=== PATIENT | male | born 1930 | race Caucasian/White ===

== ENCOUNTER 2017-01-01 11:45 | Emergency (ER) | payer MEDICARE, OTHER ==
[~2017-01-01] VITALS: Ht 167.6 cm; Wt 90.3 kg
[~2017-01-01 11:45] MED LIST: ALLOPURINOL100 MG PO; AMIODARONE HCL200 MG PO; ASPIRIN EC81 MG PO; ATENOLOL25 MG PO; ATENOLOL50 MG PO; CALCIUM + VITA1 EACH PO; CALCIUM 500 +1 EAC1 PO; CENTRUM SILVER1 EAC2 PO; DIOVAN160 MG PO; FERROUS SULFAT325 MG PO; FLUZONE HI180 MCG/07 IM; FOSAMAX70 MG PO; FUROSEMIDE20 MG PO; K-TAB10 MEQ PO; LASIX20 MG PO; LEVAQUIN500 MG PO; LEVITRA10 MG PO; LEVOFLOXACIN250 MG PO; LEVOTHYROXINE88 MCG PO; LIDOCARE1 EACH TP; METOPROLOL TAR100 MG PO; METOPROLOL TART50 MG PO; NEURONTIN600 MG PO; NORCO 5-325 TA1 EACH PO; OCUVITE TABLET1 EAC1 PO; OMEPRAZOLE20 MG PO; OMNICEF250 MG/5 M PO; SF56 GM; SIMVASTATIN10 MG PO; VITAMIN C500 M1 PO; VITAMIN D1000 UNI1 PO; VITAMIN D1000 UNIT PO
[2017-01-01] MEDS ORDERED: TAMSULOSIN HCL0.4 MG PO (11:57)
[2017-01-01] MEDS ORDERED: METHYLPREDNISOLO4 M1 PO (12:49)
== END 2017-01-01 13:29 | disposition home or self-care (01) ==
LOC: ED 11:45
DX: M54.42 Lumbago with sciatica, left side (principal); I10 Essential (primary) hypertension; E03.9 Hypothyroidism, unspecified; K21.9 Gastro-esophageal reflux disease without esophagitis; M10.9 Gout, unspecified; Z87.891 Personal history of nicotine dependence; Z90.49 Acquired absence of other specified parts of digestive tract; Z88.0 Allergy status to penicillin; Z88.8 Allergy status to other drugs, medicaments and biological substances; Z79.899 Other long term (current) drug therapy
CPT/HCPCS: 81001; 96374; 99283; J1100

== ENCOUNTER 2017-08-17 20:31 | Emergency (ER) | payer MEDICARE, OTHER ==
[~2017-08-17] VITALS: Ht 154.9 cm; Wt 81.7 kg
--- OUTSIDE RECORDS SUMMARY | ~2017-08-17 | XMS | Clinical Summary ---
Demographics + + + | Address | [address] | | | [place] [address] | + + + | Home Phone | | + + + | Preferred Language | Unknown | + + + | Marital Status | | + + + | Denominational Affiliation | 1077 | + + + | Race | Unknown | + + + | Ethnic Group | Unknown | + + + Author + + + | Author | [facility] | + + + | Organization | [facility] | + + + | Address | Unknown | + + + | Phone | Unavailable | + + + Support + + + + + | Name | Relationship | Address | Phone | + + + + + | Mari Nieves | ECON | [address] | | | | | [place] | | | | | [address] | | + + + + + | [place] Fitzpatrick | ECON | Unknown | | + + + + + | Detailed,Message | ECON | Unknown | | + + + + + Care Team Providers + +------+ + | Care Land Leases And Rentals Manager Name | Role | Phone | + +------+ + | Dileep Morin MD | PP | | + +------+ + Allergies + + + + + + | Active Allergy | Reactions | Severity | Noted | Comments | | | | | Date | | + + + + + + | Noe Inhibitors | Swelling | Medium | 03/04/20 | Lips, tongue | | | | | 13 | | + + + + + + | Celecoxib | Other (See Comments) | Medium | 10/14/19 | Kidney failure | | | | | 15 | | + + + + + + | Povidone Iodine | Rash | Medium | 06/24/19 | | | | | | 14 | | + + + + + + | Penicillins | Rash | Medium | 03/04/20 | | | | | | 13 | | + + + + + + Current Medications + + +-------+---------+------+------+-------+ | Prescription | Sig. | Disp. | Refills | Star | End | Statu | | | | | | t | Date | s | | | | | | Date | | | + + +-------+---------+------+------+-------+ | Multiple | Take 1 tablet by | | | | | Activ | | Vitamins-Minerals | mouth daily. | | | | | e | | (MULTIVITAMIN WITH | | | | | | | | MINERALS) tablet | | | | | | | + + +-------+---------+------+------+-------+ | Cholecalciferol | Take 1,000 Units by | | | | | Activ | | (VITAMIN D) 1000 | mouth daily. | | | | | e | | UNITS capsule | | | | | | | + + +-------+---------+------+------+-------+ | Multiple | Take 1 capsule by | | | | | Activ | | Vitamins-Minerals | mouth daily. | | | | | e | | (OCUVITE-LUTEIN) | | | | | | | | CAPS | | | | | | | + + +-------+---------+------+------+-------+ | simvastatin | Take 10 mg by mouth | | | | | Activ | | (ZOCOR) 10 MG tablet | nightly. | | | | | e | + + +-------+---------+------+------+-------+ | allopurinol | Take 50 mg by mouth | | | | | Activ | | (ZYLOPRIM) 100 MG | daily. | | | | | e | | tablet | | | | | | | + + +-------+---------+------+------+-------+ | furosemide (LASIX) | Take 40 mg by mouth | | | | | Activ | | 20 MG tablet | every morning. | | | | | e | + + +-------+---------+------+------+-------+ | omeprazole | Take 40 mg by mouth | | | | | Activ | | (PRILOSEC) 20 MG | every morning before | | | | | e | | capsule | breakfast. | | | | | | + + +-------+---------+------+------+-------+ | valsartan (DIOVAN) | Take 160 mg by mouth | | | | | Activ | | 160 MG tablet | daily. | | | | | e | + + +-------+---------+------+------+-------+ | potassium chloride | Take 20 mEq by mouth | | | | | Activ | | (MICRO-K) 10 MEQ CR | daily. | | | | | e | | capsule | | | | | | | + + +-------+---------+------+------+-------+ | Calcium | Take 600 mg by mouth | | | | | Activ | | Carbonate-Vit D-Min | 2 (two) times | | | | | e | | (CALCIUM 600+D PLUS | daily. | | | | | | | MINERALS) 600-400 | | | | | | | | MG-UNIT TABS | | | | | | | + + +-------+---------+------+------+-------+ | aspirin 81 MG EC | Take 81 mg by mouth | | | | | Activ | | tablet | daily with | | | | | e | | | breakfast. | | | | | | + + +-------+---------+------+------+-------+ | levothyroxine | Take 88 mcg by mouth | | | | | Activ | | (SYNTHROID) 88 MCG | every morning | | | | | e | | tablet | before breakfast. | | | | | | + + +-------+---------+------+------+-------+ Active Problems + + + | Problem | Noted Date | + + + | CAD (coronary artery disease) | 04/14/2014 | + + + + + | Last Assessment & Plan: Low grade 3V-CAD, LVEF 60-65%. | | 85yo WM, here with his , doing relatively well. He is | | relatively sedentary, admits exertional shortness of breath and | | fatigue, but no orthopnea, PND, or increasing edema. Denies any | | chest pain. Unaware of any palpitations, or lightheadedness. | | Also, complains of increasing pain in his left hip. Since last | | seen, one year ago, no surgical procedures or hospitalizations. | | Today I took James for "the walk", a relatively slow pace, | | 1-1.5 miles per hour, we made it to the [facility] where he had to | | risk because of shortness of breath and pain in his left hip, | | made it back to the office. Tolerating medications. No changes | | in therapy. Labs with PCP.Hx CABG: noHx PCI/stent: noHx | | Pacemaker/ICD: noLast Cath, 08/16/2008: low-grade 3V-CAD, LVEF | | NML.Last Echo, 03/11/2013: LVEF 60-65%, mild bi-Atrial | | enlargement, mild AI, trace MR, trace TR.Last Stress Test, | | 03/10/2014: images benign, LVEF 62%ECG, 04/14/2014: sinus rhythm, | | frequent PVC's. | + + + + + | Frequent PVCs | 06/23/2013 | + + + + + | Last Assessment & Plan: Hx PVC's. Clinically benign.48hr | | , 07/28/2013: sinus rhythm, low frequency PAC's and PVC's, no | | significant pauses. | + + + + + | Valvular heart disease | 06/23/2013 | + + + + + | Last Assessment & Plan: Mild AI, mild MR, mild TR. | | Stable.Last Echo, 03/11/2013: LVEF 60-65%, mild bi-Atrial | | enlargement, mild AI, trace MR, trace TR. | + + + + + | Hypertension | 06/23/2013 | + + + + + | Last Assessment & Plan: Hypertension, controlled, continue | | current meds at current doses (Lasix, valsartan). | + + + + + | Hyperlipidemia | 06/23/2013 | + + + + + | Last Assessment & Plan: Hyperlipidemia, continue current meds | | at current dose (simvastatin). Recent labs, patient states | | results good. | + + + + + | Other chest pain | 03/04/2013 | + + + Family History + + +------+ + | Medical History | Relation | Name | Comments | + + +------+ + | Diabetes type II | Brother | | | + + +------+ + | Heart disease | Brother | | | + + +------+ + | Hypertension | Brother | | | + + +------+ + | Cancer | Father | | | + + +------+ + + +------+ + + | Relation | Name | Status | Comments | + +------+ + + | Brother | | | heart disease, DMII,HTN | | | | (Age | | | | | 78) | | + +------+ + + | Father | | | cancer | | | | (Age | | | | | 58) | | + +------+ + + | Mother | | | age related | | | | (Age | | | | | 90) | | + +------+ + + Social History + + + +--------+ + | Tobacco Use | Types | Packs/Day | Years | Date | | | | | Used | | + + + +--------+ + | Former Smoker | Cigarettes | | 22 | Quit: 04/28/1979 | + + + +--------+ + + +------+---+---+ | Smokeless Tobacco: | Chew | | | | Former User | | | | + +------+---+---+ + + | Comments: 6 months | + + + + +---------+ + | Alcohol Use | Drinks/We | oz/Week | Comments | | | ek | | | + + +---------+ + | Yes | 0 | 0.0 | 2 drinks per month | | | Standard | | | | | drinks or | | | | | | | | | | equivalen | | | | | t | | | + + +---------+ + + + + | Sex Assigned at | Date Recorded | | | | + + + | Not on file | | + + + Last Filed Vital Signs + + + + | Vital Sign | Reading | Time Taken | + + + + | Blood Pressure | 110/60 | 12/18/2015 3:58 PM PDT | + + + + | Pulse | 59 | 12/18/2015 3:58 PM PDT | + + + + | Temperature | - | - | + + + + | Respiratory Rate | 17 | 12/18/2015 3:58 PM PDT | + + + + | Oxygen Saturation | 95% | 12/18/2015 3:58 PM PDT | + + + + | Inhaled Oxygen | - | - | | Concentration | | | + + + + | Weight | 87.1 kg (192 lb 1.6 | 12/18/2015 3:58 PM PDT | | | oz) | | + + + + | Height | 167.6 cm (5' 6") | 12/18/2015 3:58 PM PDT | + + + + | Body Mass Index | 31.01 | 12/18/2015 3:58 PM PDT | + + + + Plan of Treatment + + + + + | Health Maintenance | Due Date | Last Done | Comments | + + + + + | Vaccine: | | | | | Dtap/Tdap/Td (1 - | 8 | | | | Tdap) | | | | + + + + + | Vaccine: | | | | | Pneumococcal 65+ | 4 | | | | High/Highest Risk (1 | | | | | of 2 - PCV13) | | | | + + + + + | Vaccine: Influenza | | | | | (Season Ended) | 8 | | | + + + + + Results Not on filefrom Last 3 Months Insurance + +--------+ +------+-------+ + | Payer | Benefi | Subscriber | Type | Phone | Address | | | t Plan | ID | | | | | | / | | | | | | | Group | | | | | + +--------+ +------+-------+ + | MEDICARE | MEDICA | xxxxxxxxxx | | | [address] | | | RE | | | | [place] [address] | | | IP-OP | | | | | + +--------+ +------+-------+ + | [employer]AN | ODS | xxxxxxxxx | | | | | | HEALTH | | | | | | | PLAN | | | | | + +--------+ +------+-------+ + + +--------+ +--------+ + + | Guarantor Name | Accoun | Relation to | Date | Phone | Billing Address | | | t Type | Patient | of | | | | | | | | | | + +--------+ +--------+ + + | JAMES NIEVES | Person | Self [birth year] Home: | [address] | | [address] | | 1931 | [phone] | [place] | | | [place] | | | [phone] | [address] | + +--------+ +--------+ + +
--- OUTSIDE RECORDS SUMMARY | ~2017-08-17 | XMS | Clinical Summary ---
Demographics + + + | Address | [address] | | | [place] [address] | + + + | Home Phone | | + + + | Preferred Language | Unknown | + + + | Marital Status | | + + + | Roman Catholic Affiliation | Unknown | + + + | Race | Unknown | + + + | Ethnic Group | Unknown | + + + Author + + + | Author | [facility] | | | and [facility] | + + + | Organization | [facility] | | | [facility] | + + + | Address | Unknown | + + + | Phone | Unavailable | + + + Support + + + + + | Name | Relationship | Address | Phone | + + + + + | Mari Nieves | ECON | [address] | | | | | [place], [place] | | | | | [address] | | + + + + + | [place] Barahona | ECON | [place] | | | | | [address] | | + + + + + Care Team Providers + +------+ + | Care Shell Trim Operator Name | Role | Phone | + +------+ + | Jason Morin | PP | | + +------+ + Allergies + + + + + + | Active Allergy | Reactions | Severity | Noted | Comments | | | | | Date | | + + + + + + | Noe Inhibitors | Swelling | Medium | 06/25/19 | Lips, tongue | | | | | 06 | | + + + + + + | Celecoxib | Other (See Comments) | Medium | 10/14/19 | Kidney failure | | | | | 15 | | + + + + + + | Lisinopril | Other (See Comments) | | 01/16/20 | ANGIOEDEMA | | | | | 17 | | + + + + + + | Penicillins | Rash | Medium | 06/25/19 | | | | | | 06 | | + + + + + [...] | | | + + +-------+---------+------+------+-------+ | allopurinol | Take 50 mg by mouth | | | | | Activ | | (ZYLOPRIM) 100 mg | Daily. | | | | | e | | tablet | | | | | | | + + +-------+---------+------+------+-------+ | Multiple | Take 1 tablet by | | | | | Activ | | Vitamins-Minerals | mouth Daily. | | | | | e | | (MULTIVITAMIN WITH | | | | | | | | MINERALS) tablet | | | | | | | + + +-------+---------+------+------+-------+ | | Take 1 tablet by | | 0 | 08/0 | | Activ | | HYDROcodone-acetamin | mouth every 6 hours | | | 8/20 | | e | | ophen (NORCO) 5-325 | as needed. | | | 17 | | | | mg per tablet | | | | | | | + + +-------+---------+------+------+-------+ | levothyroxine | Take 88 mcg by mouth | | | | | Activ | | (SYNTHROID) 88 mcg | Daily. | | | | | e | | tablet | | | | | | | + + +-------+---------+------+------+-------+ | Multiple | Take 1 capsule by | | | | | Activ | | Vitamins-Minerals | mouth Daily. | | | | | e | | (OCUVITE-LUTEIN) | | | | | | | | CAPS | | | | | | | + + +-------+---------+------+------+-------+ | omeprazole | Take 40 mg by mouth | | | | | Activ | | (PRILOSEC) 20 mg | Daily. | | | | | e | | capsule | | | | | | | + + +-------+---------+------+------+-------+ | potassium chloride | Take 20 mEq by mouth | | | | | Activ | | (MICRO-K) 10 mEq CR | Daily. | | | | | e | | capsule | | | | | | | + + +-------+---------+------+------+-------+ | simvastatin | Take 10 mg by mouth | | | | | Activ | | (ZOCOR) 10 mg tablet | nightly. | | | | | e | + + +-------+---------+------+------+-------+ | Calcium Carbonate | Take 1,200 mg by | | | | | Activ | | (CALCIUM 600 PO) | mouth Daily. | | | | | e | + + +-------+---------+------+------+-------+ | tamsulosin | Take 0.4 mg by mouth | | | | | Activ | | (FLOMAX) 0.4 mg CAPS | daily (after | | | | | e | | | breakfast). | | | | | | + + +-------+---------+------+------+-------+ | triamcinolone | Apply 1 Application | | | | | Activ | | (KENALOG) 0.1% cream | topically 3 times | | | | | e | | | daily. Then put on | | | | | | | | gloves for a few | | | | | | | | hours. | | | | | | + + +-------+---------+------+------+-------+ | sildenafil | Take 100 mg by mouth | | | | | Activ | | (VIAGRA) 100 MG | as needed for | | | | | e | | tablet | Erectile | | | | | | | | Dysfunction. | | | | | | + + +-------+---------+------+------+-------+ Active Problems + + + | Problem | Noted Date | + + + | Lumbar radiculopathy | 03/10/2017 | + + + | DDD (degenerative disc disease), lumbar | 03/10/2017 | + + + | Other idiopathic scoliosis, lumbar region | 03/10/2017 | + + + | Spinal stenosis of lumbar region with radiculopathy | 03/10/2017 | + + + | Neural foraminal stenosis of lumbar spine | 03/10/2017 | + + + | Facet arthritis of lumbar region (HCC) | 03/10/2017 | + + + Family History + + + + + | Medical History | Relation | Name | Comments | + + + + + | Diabetes | Brother | | | + + + + + | Heart surgery | Brother | | | + + + + + | High blood pressure | Brother | | | + + + + + | High blood pressure | Daughter | [place] | | | | | [place] | | + + + + + | No Known Problems | Daughter | | | + + + + + | Cancer | Father | | | + + + + + | No Known Problems | Maternal | | | | | Grandfath | | | | | er | | | + + + + + | No Known Problems | Maternal | | | | | Grandmoth | | | | | er | | | + + + + + | Cancer | Paternal | | | | | Grandfath | | | | | er | | | + + + + + | Cancer | Paternal | | | | | Grandmoth | | | | | er | | | + + + + + | Cancer | Sister | | | + + + + + | Cancer | Son | | | + + + + + | Kidney disease | Son | | Kidney Stones | + + + + + + + + + + | Relation | Name | Status | Comments | + + + + + | Brother | | | | | | | (Age | | | | | 85) | | + + + + + | Daughter | [place] | Alive | | | | [place] | | | + + + + + | Daughter | | Alive | | + + + + + | Father | | | Cancer | | | | (Age | | | | | 59) | | + + + + + | Maternal Grandfather | | Alive | | + + + + + | Maternal Grandmother | | Alive | | + + + + + | Mother | | | | | | | (Age | | | | | 90) | | + + + + + | Paternal Grandfather | | | | + + + + + | Paternal Grandmother | | | | + + + + + | Sister | | | Cancer | | | | (Age | | | | | 77) | | + + + + + | Son | | | Cancer | | | | (Age | | | | | 59) | | + + + + + | Son | | Alive | | + + + + + Social History + + + +--------+ + | Tobacco Use | Types | Packs/Day | Years | Date | | | | | Used | | + + + +--------+ + | Former Smoker | Cigarettes | 1 | 40 | 04/28/1948 - | | | | | | 04/28/1988 | + + + +--------+ + + +---+---+ + | Smokeless Tobacco: | | | Quit: | | Former User | | | 04/28/18 | | | | | 90 | + +---+---+ + + + +---------+ + | Alcohol Use | Drinks/We | oz/Week | Comments | | | ek | | | + + +---------+ + | Yes | | | Social | + + +---------+ + + + + | Sex Assigned at | Date Recorded | | | | + + + | Not on file | | + + + Last Filed Vital Signs + + + + | Vital Sign | Reading | Time Taken | + + + + | Blood Pressure | 135/96 | 03/18/2017 1653 PST | + + + + | Pulse | 84 | 03/10/2017 1004 PST | + + + + | Temperature | - | - | + + + + | Respiratory Rate | - | - | + + + + | Oxygen Saturation | - | - | + + + + | Inhaled Oxygen | - | - | | Concentration | | | + + + + | Weight | 84.4 kg (186 lb) | 03/10/20174 PST | + + + + | Height | 154.9 cm (5' 1") | 03/10/20171003 PST | + + + + | Body Mass Index | 35.14 | 03/10/20171003 PST | + + + + Plan of [...] filefrom Last 3 Months Insurance + +--------+ +--------+ + + | Payer | Benefi | Subscriber | Type | Phone | Address | | | t Plan | ID | | | | | | / | | | | | | | Group | | | | | + +--------+ +--------+ + + | MEDICARE | MEDICA | xxxxxxxxxx | Medica | [phone] | | | RE | | re | [phone] | | | | PART A | | | | | | | AND B | | | | | + +--------+ +--------+ + + | MODA | MODA | xxxxxxxxx | Indemn | [phone] [address] [address] | | | HEALTH | | [phone] | [phone] | [facility] [address] | | | MDCR | | | | | | | SUPPL | | | | | + +--------+ +--------+ + + + +--------+ +--------+ + + | Guarantor Name | Accoun | Relation to | Date | Phone | Billing Address | | | t Type | Patient | of | | | | | | | | | | + +--------+ +--------+ + + | JAMES NIEVES | Person | Self [birth year] | Home: | [address] | | [place] | al[address]Fam | | 1931 | [phone] | [place] [address] | | | [place] | | | [address] | | + +--------+ +--------+ + +
--- OUTSIDE RECORDS SUMMARY | ~2017-08-17 | XMS | Encounter Summary ---
Demographics + + + | Address | [address] | | | [place] [address] | + + + | Home Phone | | + + + | Preferred Language | Unknown | + + + | Marital Status | | + + + | Anabaptism Affiliation | NON | + + + | Race | White | + + + | Ethnic Group | Not or | + + + Author + + + | Author | [facility] | + + + | Organization | [facility] | + + + | Address | Unknown | + + + | Phone | Unavailable | + + + Support + + + + + | Name | Relationship | Address | Phone | + + + + + | HALEIGH NIEVES | ECON | [address] | | | | | [place] | | | | | [address] | | + + + + + Care Team Providers + +------+ + | Care Banbury Machine Operator Name | Role | Phone | + +------+ + | Jason Morin MD | PCP | | + +------+ + Reason for Visit + + + | Reason | Comments | + + + | Hearing loss | | + + + Benefits Check (Routine) + +--------+ + + + + | Status | Reason | Specialty | Diagnoses / | Referred By | Referred To | | | | | Procedures | Contact | Contact | + +--------+ + + + + | Authorized | | [facility] | | Non-[facility] | Ent | | | | | | Epic Dept | Audiology [facility] | | | | | | | [address] | | | | | | | [address] | | | | | | | [facility] | | | | | | | Mailcode: | | | | | | | [address] | | | | | | | Physician's | | | | | | | [address]ore | | | | | | | [place], [place] | | | | | | | [address] | | | | | | | Phone: | | | | | | | [phone] | | | | | | | Fax: | | | | | | | [phone] | + +--------+ + + + + Encounter Details +--------+ + + + + | Date | Type | Department | Care Team | Description | +--------+ + + + + | 06/23/ | Diagnostic | Otolaryngology | Steffanie Lino, | Hearing loss | | 2018 | Visit | Audiology Services | CCC-A [place], [place] | | | | | at [facility] [address] [facility] | [address] | | | | | [facility] | | | | | | Mailcode: [address] | | | | | | Paresh [address] | | | | | | [place], [place] | | | | | | [address] | | | | | | [phone] | | | +--------+ + + + + Social History + +-------+ +--------+------+ | Tobacco Use | Types | Packs/Day | Years | Date | | | | | Used | | + +-------+ +--------+------+ | Former Smoker | | | | | + +-------+ +--------+------+ + + | Comments: 30 years ago | + + + + +---------+ + | Alcohol Use | Drinks/We | oz/Week | Comments | | | ek | | | + + +---------+ + | Yes | 1 | 0.5 | rarely | | | Standard | | | | | drinks or | | | | | | | | | | equivalen | | | | | t | | | + + +---------+ + + + + | Sex Assigned at | Date Recorded | | | | + + + | Not on file | | + + + as of this encounter Progress Notes Steffanie Lino CCC-A - 06/23/2017 10:00 AM PSTFormatting of this note may be different f rom the original. [facility] Cochlear Implant Program Name: James Nieves Date of : 1930 Date of Visit: 06/23/2017 Adult Follow-up Cochlear Implant Assessment Summary Sheet James Nieves is a 86 y.o. male, seen by [facility] Audiology for routine follow-up cochlear i mplant programming of his bilateral AB HR90k/Gris CI Q70 cochlear implants. James was las t seen by [facility] Audiology on 01/20/17 for cochlear implant follow-up. James was accompanied to today's appointment by his . At the present appointment, James reported that he has been hearing well with his cochlear implants. He reported that he bumped one of the batteri es and it subsequently broke. He reported no other known device issues today. Soundfield testing was completed in order to verify benefit from James's cochlear implant s. Speech perception testing was completed at 60 dB SPL in the soundfield unless otherwise noted. The following responses were obtained: Thresholds: [phone] 2000 3000 4000 6000 SRT CI- R 25 30 35 45 60 75 75 - CI- R (left external device used on right side as bilateral settings are enabled) 25 25 40 50 55 55 60 - CI- L 30 25 40 55 60 65 60 - CI- R (clinic device) 25 25 25 25 30 35 30 25 CI- L (clinic device) 25 25 25 25 35 30 20 20 Speech Perception Tests (clinic device): List S/N Score % correct HINT- R 21/22 Quiet 21/106 20% HINT- L 23/24 Quiet 53/103 51% Test results reveal that James is able to detect soft sounds in the normal hearing to mil d hearing loss range using the CLINIC external devices with significantly elevated results o btained with patient's external devices. James's speech perception scores using the CLINIC external devices are essentially stable relative to most recent scores which were decreased on the right side and remained stable on the left (HINT R = 21-24%; L: 59%) and remain decr eased on the right and stable on the left relative to previous scores (R: HINT = 41%; L: HIN T = 52%) and relative to best post-op scores (R: HINT = 40%; L: HINT =60%). His left impla nt scores remain significantly improved relative to pre-op left hearing aid test scores (HIN T = 17%). It should be noted that previously Mr. Nieves had not been tested on speech perc eption tests since 12/16/2005 with the right implant at which time results state HINT scores to be 27%, 58%, and 65% but it is unclear the condition these test scores were obtained and therefore difficult to compare with more recent results. Troubleshooting indicated that his bilateral processors (SN: [id number]; [id number]) need replace d. All other external equipment was found to be functioning appropriately. Battery size 170 needs replaced as it was visualized to be broken. Request sent to [employer]INTER[employer] written as it may be out of warranty. The clinic processor was connected to the computer. Impedances were WNL/stable across the electrode array for both sides. No programming changes were made. The settings are saved as follows. Gris CI Q70 Right/Left: Map(s) Programmed: Program Location Map # Description P1 45/27 HiRes [place]-S, High CV, Processor andree P2410/23 HiRes [place]-S, High CV, Ultra Zoom, Processor micwith WindBlock, SoundRelax and Echoblock enabled James was encouraged to continue full-time use of the cochlear implants. James was coun seled regarding use of the programs for various listening environments. James should return for cochlear implant follow-up programming and testing in 3 months or sooner should concerns arise. It was a pleasure working with Mr. Nieves today. If there are any questions or concerns regarding today's evaluation, please do not hesitate to contact me at . Following today's visit, the RMAs were completed on the [employer] Portal. Completed LMN for these. Thank You! This completes the RMA Request. A replacement processor will be shipped out within 24 hours . If you have any questions please contact [employer] Service: or Email Us An email has also been sent to your address on file. (Please print for your records) RMA Number: [id number] Patient Name: James Nieves Uploaded File Name: Patient_Export James Nieves [id number] Processor to Return: Naida_Q70 Processor Serial No: [id number] Selected Visit History: 4529-29-26_56:44___(L) 27,28,0,0,0__(R) 45,46,0,0,0 Warranty Status: Unknown warranty status Bill To (if required): Patient Return Reason: Defective device Symptom (if required): Sound quality - Shipping Address: Patient: James Nieves | [facility] | [place] [address] Comments: Thank You! This completes the RMA Request. A replacement processor will be shipped out within 24 hours . If you have any questions please contact [employer] Service: or Email Us An email has also been sent to your address on file. (Please print for your records) RMA Number: [id number] Patient Name: James Nieves Uploaded File Name: Patient_Export James Nieves [id number] Processor to Return: Naida_Q70 Processor Serial No: [id number] Selected Visit History: 0988-87-15_40:44___(L) 27,28,0,0,0__(R) 45,46,0,0,0 Warranty Status: Out of warranty Bill To (if required): Patient Return Reason: Defective device Symptom (if required): Sound quality - Shipping Address: Patient: James Nieves | [address] | [place] [address] Comments: Andrew Benitez, [facility] Clinical Doctor of Audiology [facility] Cochlear Implant Program [address] [place], [place] [address], [address] [place] [phone] in this encounter Plan of Treatment +--------+ + + + + | Date | Type | Specialty | Care Team | Description | +--------+ + + + + | 09/24/ | Diagnostic | Chicken Catcher | Steffanie Lino, | | | 2017 | Visit | | [facility] [place], [place] | | | | | | [address] | | +--------+ + + + + as of this encounter Procedures + +--------+ + + + | Procedure Name | Priori | Date/Time | Associated Diagnosis | Comments | | | ty | | | | + +--------+ + + + | ME EVL AUD STTS RHB | Routin | 06/23/2017 | Sensorineural | | | | e | 12:05 PM | hearing loss, | | | | | PST | bilateral | | + +--------+ + + + | ME EVL AUD RHB STTS | Routin | 06/23/2017 | Sensorineural | | | | e | 12:05 PM | hearing loss, | | | | | PST | bilateral | | + +--------+ + + + | ME SPEECH | Routin | 06/23/2017 | Sensorineural | | | AUDIOMETRY, COMPLETE | e | 12:05 PM | hearing loss, | | | | | PST | bilateral | | + +--------+ + + + | ME PURE TONE | Routin | 06/23/2017 | Sensorineural | | | AUDIOMETRY, AIR | e | 12:05 PM | hearing loss, | | | | | PST | bilateral | | + +--------+ + + + in this encounter Visit Diagnoses + + | Diagnosis | + + | Sensorineural hearing loss, bilateral - Primary | + +"
--- OUTSIDE RECORDS SUMMARY | ~2017-08-17 | XMS | Clinical Summary ---
Demographics + + + | Address | [address] | | | [place] [address] | + + + | Home Phone | | + + + | Preferred Language | Unknown | + + + | Marital Status | | + + + | Episcopalian Affiliation | 1077 | + + + | Race | Unknown | + + + | Ethnic Group | Unknown | + + + Author + + + | Author | [facility] | + + + | Organization | [facility] [employer] [facility] | + + + | Address | Unknown | + + + | Phone | Unavailable | + + + Support + + + + + | Name | Relationship | Address | Phone | + + + + + | Mari Nieves | ECON | [address] | | | | | [place] | | | | | [address] | | + + + + + | Venice Fitzpatrick | ECON | Unknown | | + + + + + | Detailed,Message | ECON | Unknown | | + + + + + Care Team Providers + +------+ + | Care Rework Machine Operator Name | Role | Phone [...] per hour, we made it to the [facility] where he had to | | risk [...] RE | | | | [place] [address] | | | IP-OP | | | [...] | | | [place] | | | [address] | [address] | + +--------+ +--------+ + +
--- OUTSIDE RECORDS SUMMARY | ~2017-08-17 | XMS | Encounter Summary ---
Demographics + + + | Address | [address] | | | [place] [address] | + + + | Home Phone | | + + + | Preferred Language | Unknown | + + + | Marital Status | | + + + | Muslim Affiliation | NON | + + + | Race | White | + + + | Ethnic Group | Not or | + + + Author + + + | Author | [facility] | + + + | Organization | [facility] | + + + | Address | Unknown | + + + | Phone | Unavailable | + + + Support + + + + + | Name | Relationship | Address | Phone | + + + + + | HALEIGH NIEVES | ECON | [address] | | | | | [place] | | | | | [address] | | + + + + + Care Team Providers + +------+ + | Care Storage Facility Rental Clerk Name | Role | Phone | + +------+ + | Jason Morin MD | PCP | | + +------+ + Encounter Details +--------+ + + + + | Date | Type | Department | Care Team | Description | +--------+ + + + + | 06/30/ | Documentati | Otolaryngology | Param Lebron, | | | 2018 | on | Audiology Services | [facility] [address] | | | | | at [facility] [address] | [facility] | | | | | [facility] | [address] [place], [place] | | | | | Mailcode: [address] | [address] | | | | | Physician's Adore | | | | | | [place], [place] | | | | | | [address] | | | | | | [phone] | | | +--------+ + + + [...] + + + as of this encounter Plan of Treatment +--------+ + + + + | Date | Type | Specialty | Care Team | Description | +--------+ + + + + | 09/24/ | Diagnostic | Chlorination Operator | Steffanie Lino, | | | 2017 | Visit | | [facility] [place] | | | | | | [address] | | +--------+ + + + + as of this encounter Visit Diagnoses Not on filein this encounter"
--- OUTSIDE RECORDS SUMMARY | ~2017-08-17 | XMS | Clinical Summary ---
Demographics + + + | Address | [address] | | | [place] [address] | + + + | Home Phone | | + + + | Preferred Language | Unknown | + + + | Marital Status | | + + + | Jew Affiliation | Unknown | + + + | Race | Unknown | + + + | Ethnic Group | Unknown | + + + Author + + + | Author | [facility] | | | and Ste[place]ana | + + + | Organization | [facility] | | | and Stepanana | [...] [place], [place] | | | | | [address] | | + + + + + | Venice Barahona | ECON | [place] | | | | | [address] | | + + + + + Care Team Providers + +------+ + | Care Plastic Manager Name | Role | Phone | [...] | Indemn | [phone] [address] [address] | | | HEALTH | | ity | [phone] | [facility] [address] | | | MDCR | | | [...] | [phone] | [phone] | [place] [address] | | | silvio | | | [phone] | | + +--------+ +--------+ + +
--- OUTSIDE RECORDS SUMMARY | ~2017-08-17 | XMS | Encounter Summary ---
Demographics + + + | Address | [address] | | | [place] [address] | + + + | Home Phone | | + + + | Preferred Language | Unknown | + + + | Marital Status | | + + + | Latter Day Affiliation | NON | + + + | Race | White | + + + | Ethnic Group | Not or | + + + Author + + + | Author | [facility] | + + + | Organization | [facility] | + + + | Address | Unknown | + + + | Phone | Unavailable | + + + Support + + + + + | Name | Relationship | Address | Phone | + + + + + | HALEIGH NIEVES | ECON | [address] | | | | | [place] | | | | | [address] | | + + + + + Care Team Providers + +------+ + | Care Orthotic Finish Grinding Technician Name | Role | Phone | + [...] [facility] [address] | [facility] | | | | | [facility] | Rd [place], [place] | | | | | Mailcode: [address] | [address] | | | | | Physician's Adore | | | | | | [place], [place] | | | | | | [address] | | | | | | [phone] | | | +--------+ + + + [...] + + | 09/24/ | Diagnostic | Yarn Cleaner | Steffanie Lino, | | | 2017 | Visit | | [facility] [place] | | | | | | [address] | | +--------+ + + + + as of this encounter Visit Diagnoses Not on filein this encounter"
--- OUTSIDE RECORDS SUMMARY | ~2017-08-17 | XMS | Clinical Summary ---
Demographics + + + | Address | [address] | | | [place] [address] | + + + | Home Phone | | + + + | Preferred Language | Unknown | + + + | Marital Status | | + + + | Denominational Affiliation | NON | + + + | Race | White | + + + | Ethnic Group | Not or | + + + Author + + + | Author | [facility] | + + + | Organization | [facility] | + + + | Address | Unknown | + + + | Phone | Unavailable | + + + Support + + + + + | Name | Relationship | Address | Phone | + + + + + | HALEIGH NIEVES | ECON | [address] | | | | | [place] | | | | | [address] | | + + + + + Care Team Providers + +------+ + | Care Fish Hatchery Laborer Name | Role | Phone | + +------+ + | Jason Morin MD | PP | | + +------+ + Source Comments [facility] Allergies + + + + + + | Active Allergy | Reactions | Severity | Noted | Comments | | | | | Date | | + + + + + + | Noe Inhibitors | | High | 06/25/19 | | | | | | 06 | | + + + + + + | Penicillins | | High | 06/25/19 | | | | | | 06 | | + + + + + + Current Medications + + +-------+---------+------+------+-------+ | Prescription | Sig. | Disp. | Refills | Star | End | Statu | | | | | | t | Date | s | | | | | | Date | | | + + +-------+---------+------+------+-------+ | MULTIVITAMIN CAP | None Entered | | | | | Activ | | | | | | | | e | + + +-------+---------+------+------+-------+ | CALCIUM 500 MG TAB | Take (750mg) 1.5 | | | | | Activ | | | tablet by mouth once | | | | | e | | | per day | | | | | | + + +-------+---------+------+------+-------+ | OCUVITE TAB | None Entered | | | | | Activ | | | | | | | | e | + + +-------+---------+------+------+-------+ | Omeprazole 20 mg | Take 20 mg by mouth | | | | | Activ | | Oral Tablet, Delayed | once daily. | | | | | e | | Release (E.C.) | | | | | | | + + +-------+---------+------+------+-------+ | simvastatin 10 mg | Take 10 mg by mouth | | | | | Activ | | Oral Tablet | once daily in the | | | | | e | | | evening. | | | | | | + + +-------+---------+------+------+-------+ | valsartan 160 mg | Take 160 mg by mouth | | | | | Activ | | Oral Tablet | once daily. | | | | | e | + + +-------+---------+------+------+-------+ | cholecalciferol, | Take 1,000 Units by | | | | | Activ | | Vitamin D3, (VITAMIN | mouth every seven | | | | | e | | D) 1,000 unit Oral | days. | | | | | | | Tablet | | | | | | | + + +-------+---------+------+------+-------+ | allopurinol 100 mg | Take 100 mg by mouth | | | | | Activ | | Oral Tablet | once daily. 04/29 tab | | | | | e | | | qd | | | | | | + + +-------+---------+------+------+-------+ | aspirin chewable | Take 81 mg by mouth | | | | | Activ | | (BABY ASPIRIN) 81 mg | once daily. | | | | | e | | Oral Tablet, | | | | | | | | Chewable | | | | | | | + + +-------+---------+------+------+-------+ | furosemide 20 mg | Take 20 mg by mouth | | | | | Activ | | oral tablet | once daily. | | | | | e | + + +-------+---------+------+------+-------+ | LEVOTHYROXINE 88 | | | | 05/2 | | Activ | | mcg oral tablet | | | | 01/15 | | e | | | | | | 14 | | | + + +-------+---------+------+------+-------+ | potassium chloride | Take 10 mEq by mouth | | | | | Activ | | 10 % oral liquid | once daily. | | | | | e | + + +-------+---------+------+------+-------+ Active Problems + + + | Problem | Noted Date | + + + | Sensorineural hearing loss | 02/04/2014 | + + + Encounters +--------+ + + + + | Date | Type | Specialty | Care Team | Description | +--------+ + + + + | 06/30/ | Documentati | | Param Lebron, | | | 2018 | on | | [facility] | | +--------+ + + + + | 06/23/ | Diagnostic | | Steffanie Lino, | Hearing loss | | 2017 | Visit | | [facility] | | +--------+ + + + + from Last 3 Months Social History + +-------+ +--------+------+ | Tobacco [...] + + + | Blood Pressure | 172/86 | 02/07/2014 11:43 AM PDT | + + + + | Pulse | 84 | 02/07/2014 11:43 AM PDT | + + + + | Temperature | 36.4 C (97.5 F) | 02/07/2014 11:43 AM PDT | + + + + | Respiratory Rate | 15 | 02/07/2014 11:43 AM PDT | + + + + | Oxygen Saturation | 93% | 02/07/2014 11:43 AM PDT | + + + + | Inhaled Oxygen | - | - | | Concentration | | | + + + + | Weight | 91.2 kg (201 lb) | 02/04/2014 9:10 AM PDT | + + + + | Height | 167.6 cm (5' 6") | 02/04/2014 9:10 AM PDT | + + + + | Body Mass Index | 32.44 | 02/04/2014 9:10 AM PDT | + + + + Plan of Treatment +--------+ + + + + | Date | Type | Specialty | Care Team | Description | +--------+ + + + + | 09/24/ | Diagnostic | | Steffanie Lino, | | | 2017 | Visit | | [facility] [address] | | | | | | [address] | | | | | | [place], [place] | | | | | | [address] | | +--------+ + + + + + + + + + | Health Maintenance | Due Date | Last Done | Comments | + + + + + | INFLUENZA VACCINE | | | | | (FLU SHOT) | 8 | | | + + + + + Implants + +------+--------+ +--------+--------+--------+ | Implanted | Type | Area | Manufacture | Device | Expira | Model | | | | | r | | tion | / | | | | | | Identi | Date | Serial | | | | | | fier | | / Lot | + +------+--------+ +--------+--------+--------+ | Implant Mesh Surgipro 3 X 5 | | Left: | COVIDIEN | | 07/26/ | [id number] | | Open Weave - | | Ear | TYCO US | | 2019 | / | | [id number]: Qty: 1 on | | | SURGICAL | | | [id number] | | 02/07/2014 by Obinna Roth | | | | | | [id number] | | MD Ronald | | | | | | | + +------+--------+ +--------+--------+--------+ | Hires 90k Advantage Cochlear | | Left: | | | 09/25/ | CL-[id number] | | ImplantImplanted: Qty: 1 on | | Ear | | | 2016 | 0-04 | | 02/07/2014 by Obinna Roth | | | | | | /[id number] | | MD Ronald | | | | | | 3 / | + +------+--------+ +--------+--------+--------+ | Screw Low Profile 1.6mm X 3mm | | Left: | [facility] | | | 400.83 | | Ti Self-Drilling - | | Ear | | | | 3 / / | | [id number]: Qty: 1 on | | | | | | | | 02/07/2014 by Obinna Roth | | | | | | | | MD Ronald | | | | | | | + +------+--------+ +--------+--------+--------+ | Screw Low Profile 1.6mm X 3mm | | Left: | [employer] | | | 400.83 | | Ti Self-Drilling - | | Ear | | | | 3 / / | | [id number]: Qty: 1 on | | | | | | | | 02/07/2014 by Obinna Roth | | | | | | | | MD Ronald | | | | | | | + +------+--------+ +--------+--------+--------+ Procedures + +--------+ + + + | Procedure Name | Priori | Date/Time | Associated Diagnosis | Comments | | | ty | | | | + +--------+ + + + | TN EVL AUD STTS RHB | Routin | 06/23/2017 | Sensorineural | | | | e | 12:05 PM | hearing loss, | | | | | PST | bilateral | | + +--------+ + + + | TN EVL AUD RHB STTS | Routin | 06/23/2017 | Sensorineural | | | | e | 12:05 PM | hearing loss, | | | | | PST | bilateral | | + +--------+ + + + | TN SPEECH | Routin | 06/23/2017 | Sensorineural | | | AUDIOMETRY, COMPLETE | e | 12:05 PM | hearing loss, | | | | | PST | bilateral | | + +--------+ + + + | TN PURE TONE | Routin | 06/23/2017 | Sensorineural | | | AUDIOMETRY, AIR | e | 12:05 PM | hearing loss, | | | | | PST | bilateral | | + +--------+ + + + from Last 3 Months Results Not on filefrom Last 3 Months
--- OUTSIDE RECORDS SUMMARY | ~2017-08-17 | XMS | Clinical Summary ---
Demographics + + + | Address | [address] | | | [place] [address] | + + + | Home Phone | | + + + | Preferred Language | Unknown | + + + | Marital Status | | + + + | Scientologist Affiliation | NON | + + + [...] [place] | | | | | [address] | | + + + + + Care Team Providers + +------+ + | Care Host/Hostess Restaurant Name | Role | Phone | + +------+ + | Jason Morin MD | PP | | + +------+ + Source Comments [facility] and [facility] InPatient.[facility] Allergies + + + + + + [...] | | 2017 | Visit | | [facility] [address] | | | | | | [address] | | | | | | [place], [place] | | | | | | [address] | | +--------+ + + + + [...] | | 2019 | / | | [id number]: Qty: 1 on | | | SURGICAL [...] Roth | | | | | | /[id number] | | MD Ronald | | | | | | 3 / | + +------+--------+ +--------+--------+--------+ | Screw Low Profile 1.6mm X 3mm | | Left: | [facility] | | | 400.83 | | Ti Self-Drilling - | | Ear | | | | 3 / / | | [id number]: Qty: 1 on | | | | [...] | | 3 / / | | [id number]: Qty: 1 on | | | | [...]
--- OUTSIDE RECORDS SUMMARY | ~2017-08-17 | XMS | Encounter Summary ---
Demographics + + + | Address | [address] | | | [place] [address] | + + + | Home Phone | | + + + | Preferred Language | Unknown | + + + | Marital Status | | + + + | Baptism Affiliation | NON | + + + | Race | White | + + + | Ethnic Group | Not or | + + + Author + + + | Author | [facility] | + + + | Organization | [facility] | + + + | Address | Unknown | + + + | Phone | Unavailable | + + + Support + + + + + | Name | Relationship | Address | Phone | + + + + + | HALEIGH NIEVES | ECON | [address] | | | | | [place] | | | | | [address] | | + + + + + Care Team Providers + +------+ + | Care Hoop Puncher Name | Role | Phone | + [...] + + + | Authorized | | Final Cleaner | | [facility] | Ent | | | | | | Epic Dept | [facility] | | | | | | | [address] | | | | | | | [address] | | | | | | | [facility] | | | | | | | Mailcode: | | | | | | | [address] | | | | | | | Physician's | | | | | | | [place] | | | | | | | [place], [place] | | | | | | | [address] | | | | | | | Phone: | | | | | | | [phone] | | | | | | | Fax: | | | | | | | [phone] | + +--------+ + + + + Encounter Details +--------+ + + + + | Date | Type | Department | Care Team | Description | +--------+ + + + + | 06/23/ | Diagnostic | Otolaryngology | Steffanie Lino, | Hearing loss | | 2018 | Visit | Audiology Services | [facility] [place], [place] | | | | | at [facility] [address] [facility] | [address] | | | | | [facility] | | | | | | Mailcode: [address] | | | | | | Paresh [address]itia | | | | | | [place], [place] | | | | | | [address] | | | | | | [phone] | | | +--------+ + + + [...] may be different f rom the original. [facility] Audiology Clinic Cochlear Implant Program Name: James Nieves Date of : 1930 Date of Visit: 06/23/2017 Adult Follow-up Cochlear Implant Assessment Summary Sheet James Nieves is a 86 y.o. male, seen by [facility] Audiology for routine follow-up cochlear i mplant programming of his bilateral AB HR90k/Gris CI Q70 cochlear implants. James was las t seen by [facility] Audiology on 01/20/17 for cochlear implant follow-up. [...] noted. The following responses were obtained: Thresholds: [phone] 2000 3000 4000 6000 SRT CI- R [...] Troubleshooting indicated that his bilateral processors (SN: [id number]; [id number]) need replace d. All other external equipment [...] Location Map # Description P1 45/27 HiRes Steele-S, High CV, Processor andree P2410/23 HiRes Steele-S, High CV, Ultra Zoom, Processor micwith WindBlock, [...] visit, the RMAs were completed on the [employer] Portal. Completed LMN for these. Thank You! This completes the RMA Request. A replacement processor will be shipped out within 24 hours . If you have any questions please contact [employer] Service: or Email Us An email has also been sent to your address on file. (Please print for your records) RMA Number: [id number] Patient Name: James Nieves Uploaded File Name: Patient_Export James Nieves [id number] Processor to Return: Naida_Q70 Processor Serial No: [id number] Selected Visit History: [id number]_01:44___(L) 27,28,0,0,0__(R) 45,46,0,0,0 Warranty Status: Unknown warranty status Bill To (if required): Patient Return Reason: Defective device Symptom (if required): Sound quality - Shipping Address: Patient: James Nieves | [facility] | [place] [address] Comments: Thank You! This completes the RMA Request. A replacement processor will be shipped out within 24 hours . If you have any questions please contact [employer] Service: or Email Us An email has also been sent to your address on file. (Please print for your records) RMA Number: [id number] Patient Name: James Nieves Uploaded File Name: Patient_Export James Nieves [id number] Processor to Return: Naida_Q70 Processor Serial No: [id number] Selected Visit History: [id number]_14:44___(L) 27,28,0,0,0__(R) 45,46,0,0,0 Warranty Status: Out of warranty Bill To (if required): Patient Return Reason: Defective device Symptom (if required): Sound quality - Shipping Address: Patient: James Nieves | [address] | [place] [address] Comments: Andrew Benitez, [facility] Clinical Doctor of Audiology [facility] Cochlear Implant Program [address] [place], [place] [id number], [address] [place] [phone] in this encounter Plan of Treatment +--------+ + + + + | Date | Type | Specialty | Care Team | Description | +--------+ + + + + | 09/24/ | Diagnostic | Final Cleaner | Steffanie Lino, | | | 2017 | [facility] | [facility] [place] [place] | | | | | | [address] | | +--------+ + + + + as of this encounter Procedures + +--------+ + + + | Procedure Name | Priori | Date/Time | Associated Diagnosis | Comments | | | ty | | | | + +--------+ + + + | CO EVL AUD STTS RHB | Routin | 06/23/2017 | Sensorineural | | | | e | 12:05 PM | hearing loss, | | | | | PST | bilateral | | + +--------+ + + + | CO EVL AUD RHB STTS | Routin | 06/23/2017 | Sensorineural | | | | e | 12:05 PM | hearing loss, | | | | | PST | bilateral | | + +--------+ + + + | CO SPEECH | Routin | 06/23/2017 | Sensorineural | | | AUDIOMETRY, COMPLETE | e | 12:05 PM | hearing loss, | | | | | PST | bilateral | | + +--------+ + + + | CO PURE TONE | Routin | 06/23/2017 | [...]
[~2017-08-17 20:31] MED LIST changes: +METHYLPREDNISOLO4 M1 PO; +TAMSULOSIN HCL0.4 MG PO
[2017-08-17] MEDS ORDERED: CALCIUM600 MG PO (20:49)
[2017-08-17] MEDS ORDERED: OCUSIGHT (20:50)
[2017-08-17] MEDS ORDERED: NORCO 5-325 TA1 EACH PO ×2 (20:51→22:48)
[2017-08-17] MEDS ORDERED: METOPROLOL SUCC25 MG PO (20:51)
[2017-08-17] MEDS ORDERED: ASPIR-LOW81 MG PO (20:52)
[2017-08-17] MEDS ORDERED: CLOPIDOGREL75 MG PO (20:52)
--- NOTE | 2017-08-18 06:55 | EKG ---
[facility] [address] [facility] [place] [address] Signed Sinus rhythm with 1st degree AV block with occasional premature ventricular complexes and premature atrial complexes Otherwise normal ECG When compared with ECG of 31-MAR-2016 04:28, premature ventricular complexes are now present premature atrial complexes are now present KS interval has increased QRS axis shifted right Confirmed by JOY HUITRON MD ([id number]) on 08/18/2017 6:55:38 AM Electronically Signed By: JOY HUITRON MD 08/18/17 0655 PATIENT NAME: JAMES NIEVES Electrocardiogram DATE OF : [birth year] PHYSICIAN: JOY HUITRON MD REPORT #: [id number] REPORT IS CONFIDENTIAL AND NOT TO BE RELEASED WITHOUT AUTHORIZATION
== END 2017-08-17 23:02 | disposition home or self-care (01) ==
LOC: ED 20:31
DX: R07.89 Other chest pain (principal); E03.9 Hypothyroidism, unspecified; K21.9 Gastro-esophageal reflux disease without esophagitis; I10 Essential (primary) hypertension; Z87.891 Personal history of nicotine dependence; Z88.8 Allergy status to other drugs, medicaments and biological substances; Z88.0 Allergy status to penicillin; Z88.1 Allergy status to other antibiotic agents; Z79.82 Long term (current) use of aspirin; Z79.899 Other long term (current) drug therapy
CPT/HCPCS: 71045; 80053; 84484; 85025; 85610; 85730; 93005; 93010; 96374; 99284; J1885